=== PATIENT | male | born 1960 | race African-American/Black ===

== ENCOUNTER 2020-11-05 13:46 | Outpatient (CLI) | payer OTHER | END 2020-11-05 18:00 | disposition home or self-care (01) | LOC: US 13:46 | PROVIDERS: ATTEND Nurse Practitioner Family | DX: M79.89 Other specified soft tissue disorders (principal); M79.603 Pain in arm, unspecified ==

== ENCOUNTER 2022-06-06 08:23 | Outpatient (CLI) | payer OTHER | END 2022-06-06 19:37 | disposition home or self-care (01) | LOC: MRI 08:23 | PROVIDERS: ATTEND Family Medicine | DX: R56.9 Unspecified convulsions (principal); H93.12 Tinnitus, left ear; H66.93 Otitis media, unspecified, bilateral; R53.83 Other fatigue; G47.00 Insomnia, unspecified | CPT/HCPCS: 36415; 82565; 84520; A9576 ==